=== PATIENT | female | born 1960 | race Caucasian/White ===

== ENCOUNTER 2017-01-13 07:02 | Emergency (ER) | payer BC ==
[2017-01-13 07:27] VITALS: BP 155/87
[2017-01-13] MEDS ORDERED: cefTRIAXone 1 GM Vial IM ONE (08:07)
[2017-01-13] MEDS ORDERED: Albuterol/Ipratropium 3.0-0.5 MG/3 ML Neb Soln NEB STA (08:07)
[2017-01-13] MEDS ORDERED: Albuterol/Ipratropium 3.0-0.5 MG/3 ML Neb Soln ONE (08:28)
[2017-01-13] MEDS ORDERED: cefTRIAXone 1 GM Vial ONE (08:37)
--- NOTE | 2017-01-13 08:44 | EDM.PDOC ---
ED HPI GENERAL MEDICAL PROBLEM - General Chief Complaint: Respiratory Problem Stated Complaint: SOB Time Seen by Provider: 01/13/17 07:30 Source of Information: Reports: Patient History Limitations: Reports: No Limitations - History of Present Illness INITIAL COMMENTS - FREE TEXT/NARRATIVE: This is a 56yo F with history of bronchitis and a long time smoker here for sob and chest congestion. Patient is from out of town and would like to continue on her trip home today which is 600 miles away. Patient denies any fever, chills and states she has had this in the past as well as steroid tapers and management for bronchitis. She has a nebulizer machine at home. Patient states she is going to start Chantix soon but does continue to smoke. Onset: Sudden Duration: Hour(s):, Constant Location: Reports: Chest Severity: Mild Improves with: Reports: None Worsens with: Reports: Movement Associated Symptoms: Reports: Shortness of Breath Treatments MEAT MANAGER: Reports: Other (see below) Other Treatments MEAT MANAGER: Albuteral rescue inhaler - Related Data Allergies Allergy/AdvReac Type Severity Reaction Status Date / Time sulfamethoxazole Allergy heart Verified 01/13/17 07:33 [From Bactrim] racing trimethoprim [From Bactrim] Allergy heart Verified 01/13/17 07:33 racing Home Meds: Home Meds HCTZ/Triamterene [Dyazide 25-37.5 MG] 01/13/17 [History] Metoprolol Tartrate [Lopressor] 100 mg PO 01/13/17 [History] Potassium Chloride [Klor-Con M20] 20 meq PO BID 01/13/17 [History] Venlafaxine [Effexor] 75 mg 01/13/17 [History] Venlafaxine [Effexor] 75 mg PO BID 01/13/17 [History] ED ROS GENERAL - Review of Systems Review Of Systems: ROS reveals no pertinent complaints other than HPI. Constitutional: Reports: No Symptoms HEENT: Reports: No Symptoms Respiratory: Reports: Shortness of Breath, Wheezing, Cough Cardiovascular: Reports: No Symptoms Endocrine: Reports: No Symptoms GI/Abdominal: Reports: No Symptoms Musculoskeletal: Reports: No Symptoms Skin: Reports: No Symptoms Neurological: Reports: No Symptoms Psychiatric: Reports: No Symptoms Hematologic/Lymphatic: Reports: No Symptoms Immunologic: Reports: No Symptoms ED EXAM, GENERAL - Physical Exam Exam: See Below Exam Limited By: No Limitations General Appearance: Alert, WD/WN, No Apparent Distress Eye Exam: Bilateral Eye: EOMI, PERRL Ears: Normal External Exam Nose: Normal Inspection Throat/Mouth: Normal Inspection Head: Atraumatic, Normocephalic Neck: Normal Inspection, Supple Respiratory/Chest: Decreased Breath Sounds, Rales, Rhonchi, Wheezing Cardiovascular: Normal Peripheral Pulses, Regular Rate, Rhythm, No Edema, No Gallop GI/Abdominal: Normal Bowel Sounds Extremities: Normal Inspection Neurological: Alert, Oriented, CN II-XII Intact Psychiatric: Normal Affect, Normal Mood Skin Exam: Warm, Dry, Intact Course - Vital Signs Last Recorded V/S: Last Vital Signs Temp 36.1 C 01/13/17 07:09 Pulse 99 01/13/17 07:09 Resp 24 H 01/13/17 07:09 BP 155/87 H 01/13/17 07:09 Pulse Ox 99 01/13/17 07:09 - Orders/Labs/Meds Labs: Laboratory Tests 01/13/17 01/13/17 Range/Units 07:22 07:22 WBC 11.9 H (4.0-11.0) K/uL RBC 5.14 (3.80-5.80) M/uL Hgb 15.5 (11.5-16.5) g/dL Hct 45.2 (37.0-47.0) % MCV 88 (76-96) fL MCH 30.2 (27.0-32.0) pg MCHC 34.3 (31.0-35.0) g/dL RDW 13.3 (11.0-16.0) % Plt Count 266 (150-500) K/uL MPV 10.6 H (6.0-10.0) fL Neut % (Auto) 67.8 (45.0-70.0) % Lymph % (Auto) 23.6 (20.0-40.0) % [place] % (Auto) 5.2 (3.0-10.0) % Eos % (Auto) 3.1 (1.0-5.0) % Baso % (Auto) 0.3 (0.0-0.5) % Neut # (Auto) 8.06 H (2.00-7.50) K/uL Lymph # (Auto) 2.81 (1.50-4.00) K/uL [place] # (Auto) 0.62 (0.20-0.80) K/uL Eos # (Auto) 0.37 (0.04-0.40) K/uL Baso # (Auto) 0.03 (0.02-0.10) K/uL Sodium 140 (136-145) mmol/L Potassium 3.5 (3.5-5.1) mmol/L Chloride 103 (98-107) mmol/L Carbon Dioxide 26.6 (21.0-32.0) mmol/L Anion Gap 13.9 (5.0-15.0) mmol/L BUN 9 (8-26) mg/dL Creatinine 0.72 (0.55-1.02) mg/dL Est Cr Clr Drug Dosing 99.48 mL/min Estimated GFR (MDRD) > 60 (>60) MLS/MIN BUN/Creatinine Ratio 12.5 (6-25) Glucose 145 H (74-100) mg/dL Calcium 9.2 (8.5-10.1) mg/dL Meds: Medications Discontinued Medications Generic Name Dose Route Start Last Admin Trade Name Freq PRN Reason Stop Dose Admin Albuterol/Ipratropium 3 ml 01/13/17 08:07 01/13/17 08:30 Duoneb 3.0-0.5 Mg/3 Ml NEB 01/13/17 08:08 3 ml NOW STA Administration Albuterol/Ipratropium Confirm 01/13/17 08:28 01/13/17 08:33 Duoneb 3.0-0.5 Mg/3 Ml Administered 01/13/17 08:29 Not Given Dose 3 ml .ROUTE .STK-MED ONE Ceftriaxone Sodium 1 gm 01/13/17 08:07 01/13/17 08:36 Rocephin IM 01/13/17 08:08 1 gm ONETIME ONE Administration Ceftriaxone Sodium Confirm 01/13/17 08:37 01/13/17 08:50 Rocephin Administered 01/13/17 08:38 Not Given Dose 1 gm .ROUTE .STK-MED ONE - Re-Assessments/Exams Free Text/Narrative Re-Assessment/Exam: Nebulizer treatment given with improved lung sounds and breathing. Departure - Departure Time of Disposition: 08:10 Disposition: Home, Self-Care 01 Condition: Good Clinical Impression: COPD (chronic obstructive pulmonary disease) Qualifiers: COPD type: chronic bronchitis Chronic bronchitis type: mixed simple and mucopurulent Qualified Code(s): J41.8 - Mixed simple and mucopurulent chronic bronchitis - Discharge Information Instructions: Acute Bronchitis Referrals: PCP,None [Primary Care Provider] - Forms: ED Department Discharge - Problem List & Annotations (1) COPD (chronic obstructive pulmonary disease) SNOMED Code(s): 85655377 Code(s): J44.9 - CHRONIC OBSTRUCTIVE PULMONARY DISEASE, UNSPECIFIED Status : Acute Qualifiers: COPD type: chronic bronchitis Chronic bronchitis type: mixed simple and mucopurulent Qualified Code(s): J41.8 - Mixed simple and mucopurulent chronic bronchitis - Problem List Review Problem List Initiated/Reviewed/Updated: Yes - Assessment/Plan Plan: Counseled on steroid use, taper, antibiotics, nebulizer and side effects of medications. Patient to f/u with PCP when she gets home. Patient refused further care as she would like to travel home today. Patient understands the risks and has had these issues in the past and has been counseled on smoking cessation and f/u. Patient agrees with f/u at her PCP clinic and ER as needed. Prescriptions written for patient and instructions discussed and counseled.
--- NOTE | 2017-01-13 08:54 | CR ---
DATE OF SERVICE: 01/13/2017 CLINICAL DATA: SOB. AP CHEST No priors. The heart size is normal. There are minimal atelectatic changes in both lung bases. The lungs are otherwise clear. No pneumothorax. No pleural effusions. No other significant findings. [id number] MTDD
== END 2017-01-13 08:41 | disposition home or self-care (01) ==
LOC: LB.ED 07:02
DX: J41.8 Mixed simple and mucopurulent chronic bronchitis (principal); Z88.2 Allergy status to sulfonamides; Z88.8 Allergy status to other drugs, medicaments and biological substances
CPT/HCPCS: 36415; 71010; 80048; 85025; 93005; 96372; 99285; J0696; J7620